=== PATIENT | female | born 1930 | race Caucasian/White ===

== ENCOUNTER 2016-10-21 08:09 | Outpatient (CLI) | payer MEDICARE ==
[2016-10-21 08:39] LABS: Bilirubin Negative (Negative); Blood, Urine Negative (Negative); Clarity Clear (Clear); Glucose, Urine (Dipstick) Negative (Negative); Leukocyte Small (Negative); Nitrite Negative (Negative); Protein, Urine (Dipstick) Negative (Neg-Trace); Specific Gravity, Urine 1.015 (1.005-1.030); Urobilinogen 0.2 mg/dL (0.2-1.0)
[2016-10-21 08:45] LABS: Bacteria/HPF None Seen HPF (None Seen); RBC/HPF 0-3 HPF (0-3); Squamous Epithelial 0-3 HPF (0-3)
[2016-10-21 08:48] LABS: #Basophils 0.1 thou/uL (0.0-0.2); #Eosinphils 0.1 thou/uL (0.0-0.7); #Lymphocytes 2.3 thou/uL (1.20-3.40); #Monocytes 0.4 thou/uL (0.11-0.59); #Neutrophils 4.3 thou/uL (1.40-6.50); %Basophils 1.1 % (0.0-1.0); %Eosinophils 1.1 % (0.0-10.0); %Lymphocytes 31.7 % (21.0-51.0); %Monocytes 5.7 % (0.0-10.0); %Neutrophils 60.3 % (42.0-75.0); Hemoglobin 14.3 g/dL (12.0-16.0); Mean Corpuscular Hemoglobin 30.7 pg (27.0-31.0); Mean Corpuscular Volume 87.9 fl (81.0-99.0); Mean Platelet Volume 6.2 fL (7.4-10.4); Platelet Count 293 thou/uL (130-400); RBC Distribution Width 11.5 % (11.5-14.5); Red Blood Cell (RBC) Count 4.67 mill/uL (4.20-5.40); White Blood Cell (WBC) Count 7.2 thou/uL (4.8-10.8)
[2016-10-21 09:01] LABS: ALT (SGPT) 28 U/L (0-55); AST (SGOT) 21 U/L (5-34); Albumin 4.4 g/dL (3.4-4.8); Alkaline Phosphatase 103 U/L (40-150); Anion Gap 13 mmol/L (10-20); BUN (Urea Nitrogen) 14 mg/dL (9.8-20.1); Bilirubin, Total 1.2 mg/dL (0.2-1.2); Calc. Creatinine Clearance 0 mL/min (70-130); Calcium 9.4 mg/dL (7.8-10.44); Carbon Dioxide 28 mmol/L (23-31); Cardiac Risk 5.7 (Less than 4.5); Chloride 100 mmol/L (98-107); Cholesterol 226 mg/dL (< 200 Desired); Estimated GFR-MDRD 76; Globulin 2.5 g/dL (2.4-3.5); Glucose 99 mg/dL (83-110); HDL Cholesterol 40 mg/dL (>60 Neg Risk); LDL Cholesterol, Calculated 150 mg/dL; Protein, Total 6.9 g/dL (5.8-8.1); Sodium 137 mmol/L (136-145); Triglycerides 182 mg/dL (Less than 150)
== END 2016-10-21 08:10 ==
LOC: MADLABBHPM 08:09
PROVIDERS: ATTEND Family Medicine
DX: I10 Essential (primary) hypertension (principal)
CPT/HCPCS: 36415; 80053; 80061; 81001; 84443; 85025

== ENCOUNTER 2016-11-20 16:24 | Outpatient (CLI) | payer MEDICARE ==
[2016-11-20 17:02] LABS: #Basophils 0.1 thou/uL (0.0-0.2); #Lymphocytes 2.3 thou/uL (1.20-3.40); #Monocytes 0.5 thou/uL (0.11-0.59); #Neutrophils 6.4 thou/uL (1.40-6.50); %Basophils 1.1 % (0.0-1.0); %Eosinophils 0.4 % (0.0-10.0); %Lymphocytes 25.2 % (21.0-51.0); %Monocytes 5.2 % (0.0-10.0); %Neutrophils 68.1 % (42.0-75.0); Hemoglobin 13.1 g/dL (12.0-16.0); Mean Corpuscular HGB CONC 35.1 g/dL (32.0-36.0); Mean Corpuscular Hemoglobin 30.6 pg (27.0-31.0); Mean Corpuscular Volume 87.2 fl (81.0-99.0); Mean Platelet Volume 6.2 fL (7.4-10.4); Platelet Count 257 thou/uL (130-400); RBC Distribution Width 11.6 % (11.5-14.5); Red Blood Cell (RBC) Count 4.29 mill/uL (4.20-5.40); White Blood Cell (WBC) Count 9.3 thou/uL (4.8-10.8)
[2016-11-20 17:15] LABS: ALT (SGPT) 24 U/L (0-55); AST (SGOT) 18 U/L (5-34); Albumin 4.4 g/dL (3.4-4.8); Alkaline Phosphatase 87 U/L (40-150); Anion Gap 14 mmol/L (10-20); BUN (Urea Nitrogen) 13 mg/dL (9.8-20.1); Bilirubin, Total 1.4 mg/dL (0.2-1.2); Calc. Creatinine Clearance 0 mL/min (70-130); Calcium 9.2 mg/dL (7.8-10.44); Carbon Dioxide 24 mmol/L (23-31); Chloride 102 mmol/L (98-107); Estimated GFR-MDRD 77; Globulin 2.5 g/dL (2.4-3.5); Glucose 118 mg/dL (83-110); Potassium 3.9 mmol/L (3.5-5.1); Protein, Total 6.9 g/dL (5.8-8.1); Sodium 136 mmol/L (136-145)
--- NOTE | 2016-11-20 19:55 | CT ---
CT BRAIN 11/20/16 HISTORY: 86-year-old with history of ischemia. Noncontrast enhanced CT images of the brain obtained. Images demonstrate diffuse cortical atrophy. Deep white matter ischemic changes seen. 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 A moderate sized area of infarction seen in the ante rior limb over the right internal capsule as well as the right basal ganglion. These all appear to b e old. No other acute abnormality seen. IMPRESSION: No evidence of acute intracranial abnormality seen. POS: MORENITA
== END 2016-11-20 16:25 | disposition home or self-care (01) ==
LOC: MADLAB 16:24
PROVIDERS: ATTEND Family Medicine
DX: G45.9 Transient cerebral ischemic attack, unspecified (principal); R55 Syncope and collapse
CPT/HCPCS: 36415; 70450; 80053; 85025; 93005; 93010

== ENCOUNTER 2020-07-27 16:19 | Emergency (ER) | payer MEDICARE ==
[2020-07-27] MEDS ORDERED: Acetaminophen 500 MG TAB ONE (16:42)
[2020-07-27] MEDS ORDERED: Ibuprofen 400 MG TAB ONE (16:42)
--- NOTE | 2020-07-27 16:59 | RAD ---
RIGHT ANKLE RADIOGRAPHS THREE VIEWS: 07/27/20 PROVIDED CLINICAL HISTORY: Pain status post injury. FINDINGS: Nondisplaced Hunter A distal fibular fracture. Nondisplaced base of the fifth metatarsal fracture. No additional fracture is evident. Alignment appears anatomic. Joint spaces appear preserved. IMPRESSION: Distal fibula and fifth metatarsal base fractures. POS: VETO
--- NOTE | 2020-07-27 17:01 | RAD ---
RIGHT FOOT RADIOGRAPHS THREE VIEWs: 07/27/20 PROVIDED CLINICAL HISTORY: Pain status post injury. FINDINGS: There is a nondisplaced extra-articular base of fifth metatarsal fracture. No additional fracture is evident. Alignment appears anatomic. Joint spaces appear preserved. IMPRESSION: Nondisplaced base of the fifth metatarsal fracture. POS: VETO
== END 2020-07-27 17:15 | disposition home or self-care (01) ==
LOC: MADERS 16:19
DX: S82.64XA Nondisplaced fracture of lateral malleolus of right fibula, initial encounter for closed fracture (principal); S92.354A Nondisplaced fracture of fifth metatarsal bone, right foot, initial encounter for closed fracture; E78.5 Hyperlipidemia, unspecified; E78.00 Pure hypercholesterolemia, unspecified; I10 Essential (primary) hypertension; F32.9 Major depressive disorder, single episode, unspecified; X50.9XXA Other and unspecified overexertion or strenuous movements or postures, initial encounter
CPT/HCPCS: 27786

== ENCOUNTER 2020-12-05 16:56 | Emergency (ER) | payer MEDICARE ==
[~2020-12-05 16:56] MED LIST: Iopamidol 370 76% 100 ML VIAL ONE
== END 2020-12-05 18:30 | disposition home or self-care (01) ==
LOC: MADERS 16:56
DX: S93.601A Unspecified sprain of right foot, initial encounter (principal); E78.5 Hyperlipidemia, unspecified; E78.00 Pure hypercholesterolemia, unspecified; I10 Essential (primary) hypertension; X50.9XXA Other and unspecified overexertion or strenuous movements or postures, initial encounter
CPT/HCPCS: 70450; Q9967

== ENCOUNTER 2021-02-12 13:38 | Emergency (ER) | payer MEDICARE ==
[~2021-02-12 13:38] MED LIST changes: -Iopamidol 370 76% 100 ML VIAL ONE; +Iopamidol 370 76% 125 ML VIAL FS ONE
[2021-02-12 14:04] LABS: INR-International Normal Ratio 0.9; PTT 26.4 sec (22.9-36.1); Prothrombin Time 12.6 sec (12.0-14.7)
[2021-02-12 14:11] LABS: White Blood Cell (WBC) Count 8.7 thou/uL (4.8-10.8)
[2021-02-12 14:12] LABS: Hemoglobin 14.2 g/dL (12.0-16.0); MDiff Complete? YES; Manual Diff?? YES; Mean Corpuscular HGB CONC 32.4 g/dL (32.0-36.0); Mean Corpuscular Hemoglobin 29.7 pg (27.0-31.0); Mean Corpuscular Volume 91.4 fL (78.0-98.0); Mean Platelet Volume 6.2 fL (7.4-10.4); Platelet Count 281 thou/uL (130-400); RBC Distribution Width 11.8 % (11.5-14.5); Red Blood Cell (RBC) Count 4.78 mill/uL (4.20-5.40)
[2021-02-12 14:16] LABS: Anisocytosis SLIGHT = 6-15 cells (100X) (0-5/hpf); Band 2 % (5-11); Lymphocytes 37 % (21-51); Monocytes 4 % (0-10); Neutrophil 57 % (42-75); Platelet Morphology Comment Appears Adequate
[2021-02-12 14:20] LABS: Sodium 135 mmol/L (136-145)
[2021-02-12 14:21] LABS: Albumin 4.5 g/dL (3.4-4.8); Calcium 9.1 mg/dL (7.8-10.44); Chloride 101 mmol/L (98-107); Globulin 2.6 g/dL (2.4-3.5); Glucose 148 mg/dL (83-110); Potassium 4.4 mmol/L (3.5-5.1); Protein, Total 7.1 g/dL (5.8-8.1)
[2021-02-12 14:24] LABS: Anion Gap 18 mmol/L (10-20); BUN (Urea Nitrogen) 14 mg/dL (9.8-20.1); Calc. Creatinine Clearance 0 mL/min (70-130); Carbon Dioxide 20 mmol/L (23-31)
[2021-02-12 14:25] LABS: ALT (SGPT) 15 U/L (8-55); AST (SGOT) 17 U/L (5-34); Alkaline Phosphatase 78 U/L (40-110); Bilirubin, Total 1.8 mg/dL (0.2-1.2)
[2021-02-12] MEDS ORDERED: Aspirin Chewable 81 MG TAB ONE (15:39)
[2021-02-12 21:44] LABS: Hemoglobin A1c 5.1 % (4.0-6.0)
[2021-02-14 08:16] LABS: Direct LDL Cholesterol 83 mg/dL (0-99)
== END 2021-02-12 17:23 | disposition short-term general hospital (02) ==
LOC: MADERS 13:38
DX: R47.81 Slurred speech (principal); R29.703 NIHSS score 3; E78.5 Hyperlipidemia, unspecified; E78.00 Pure hypercholesterolemia, unspecified
CPT/HCPCS: 36416; 70450; 70496; 70498; 80053; 83036; 83721; 84443; 84478; 84484; 85025; 85610; 85730; 93005; Q9967